=== PATIENT | female | born 1970 | race Caucasian/White ===

== ENCOUNTER → 2020-08-20 | Day surgery (SDC) | payer BC ==
[~2020-08-20] MED LIST: AMLODIPINE BESYL5 MG PO; CETIRIZINE HCL10 MG PO; CYMBALTA30 MG PO; FAMOTIDINE20 MG PO; LIDOCAINE HCL 2% LOCAL INJ 5 ML SDV VIAL INJ ONE; METOCLOPRAMIDE HCL 10 MG/2ML VIAL ONE; MIDAZOLAM HCL 2 MG/2 ML VIAL ONE; PANTOPRAZOLE SO40 MG PO; PROPOFOL IV EMULSION 10 MG/ML 20 ML VIAL ONE
[2020-08-20 09:40] VITALS: BP 112/74
== END | disposition home or self-care (01) ==
LOC: OR 05:54
PROVIDERS: ATTEND Internal Medicine Gastroenterology
DX: K29.70 Gastritis, unspecified, without bleeding (principal); K31.7 Polyp of stomach and duodenum; K29.80 Duodenitis without bleeding; K20.90 Esophagitis, unspecified without bleeding; K21.9 Gastro-esophageal reflux disease without esophagitis; Z98.84 Bariatric surgery status; K59.09 Other constipation; R06.6 Hiccough; I10 Essential (primary) hypertension; F32.9 Major depressive disorder, single episode, unspecified; F41.9 Anxiety disorder, unspecified; Z01.810 Encounter for preprocedural cardiovascular examination; Z01.812 Encounter for preprocedural laboratory examination; Z20.822 Contact with and (suspected) exposure to COVID-19; Z68.38 Body mass index [BMI] 38.0-38.9, adult
CPT/HCPCS: 43239; 93005; J2001; J2250; J2704; J2765; U0002

== ENCOUNTER → 2024-02-14 | Outpatient (REF) | payer BC ==
[~2024-02-14] MED LIST changes: -LIDOCAINE HCL 2% LOCAL INJ 5 ML SDV VIAL INJ ONE; -METOCLOPRAMIDE HCL 10 MG/2ML VIAL ONE; -MIDAZOLAM HCL 2 MG/2 ML VIAL ONE; -PROPOFOL IV EMULSION 10 MG/ML 20 ML VIAL ONE
== END ==
LOC: RAD 13:03
PROVIDERS: ATTEND Internal Medicine
DX: J40 Bronchitis, not specified as acute or chronic (principal); J21.0 Acute bronchiolitis due to respiratory syncytial virus
CPT/HCPCS: 71046

== ENCOUNTER → 2024-08-06 | Day surgery (SDC) | payer BC ==
[~2024-08-06] MED LIST changes: +BUPROPION XL150 MG PO; +CRESTOR40 MG PO; +GLYCOPYRROLATE INJ 0.2 MG/ML VIAL ONE; +HYOSCYAMINE SULFATE 0.5 MG/ML INJ ONE; +LIDOCAINE HCL 2% LOCAL INJ 5 ML SDV VIAL INJ ONE; +METOCLOPRAMIDE HCL 10 MG/2ML VIAL ONE; +MULTI-VITAMIN1 EACH PO; +PROPOFOL IV EMULSION 50 ML IV ONE; +PROZAC20 MG PO; +STRATTERA60 MG PO; +TRAZODONE HCL100 MG PO; +VIT B12 PO; +vit d3 PO
[2024-08-06] MEDS: LACTATED RINGER'S 1,000 ML ONE (07:50)
[2024-08-06 09:54] VITALS: TEMP 98.4
[2024-08-06 10:10] VITALS: BP 122/82; PULSE 89; RESP 16; O2SAT 97
== END | disposition home or self-care (01) ==
LOC: OR 07:30
PROVIDERS: ATTEND Internal Medicine Gastroenterology
DX: K29.50 Unspecified chronic gastritis without bleeding (principal); K63.5 Polyp of colon; K31.7 Polyp of stomach and duodenum; K31.89 Other diseases of stomach and duodenum; K20.90 Esophagitis, unspecified without bleeding; K21.9 Gastro-esophageal reflux disease without esophagitis; K44.9 Diaphragmatic hernia without obstruction or gangrene; R19.5 Other fecal abnormalities; K64.8 Other hemorrhoids; Z98.84 Bariatric surgery status; I10 Essential (primary) hypertension; E66.01 Morbid (severe) obesity due to excess calories; F41.9 Anxiety disorder, unspecified; F32.A Depression, unspecified; Z01.810 Encounter for preprocedural cardiovascular examination; Z79.899 Other long term (current) drug therapy
CPT/HCPCS: 43239; 43251; 45378; 45385; 93005; J1980; J2003; J2470; J2765